=== PATIENT | female | born 1975 | race Caucasian/White ===

== ENCOUNTER → 2021-01-20 | Outpatient (CLI) | payer OTHER ==
[~2021-01-20] MED LIST: IBUPROFEN200 M1 PO; XANAX 0.25 MG0.25 MG PO
== END ==
LOC: LAB 08:51
PROVIDERS: ATTEND Student in an Organized Health Care Education/Training Program
DX: Z01.812 Encounter for preprocedural laboratory examination (principal); Z20.822 Contact with and (suspected) exposure to COVID-19

== ENCOUNTER 2021-01-22 06:05 | Day surgery (SDC) | payer OTHER ==
[~2021-01-22] VITALS: Ht 177.8 cm; Wt 120.2 kg
[2021-01-22 07:53] VITALS: BP 133/86
--- NOTE | 2021-01-22 12:23 | O ---
[address] [address] OPERATIVE REPORT Name: MARY ALMONTE Room #: 150-1 [facility]..#: [id number] Admission: 01/22/21 Attend Phys: Enio Garcia MD Discharge: Date of : 73 Report #: [id number] THIS REPORT FOR: cc: Moiz Rene MD, John M. MD McCabe,Enio Hanson MD ~ DOC #: [id number] Enio Garcia MD DATE OF SERVICE: 01/22/2021 SERVICE: Orthopedics. FACILITY: [facility]. SURGEON: Enio Garcia MD DREDGE PIPEMAN: Elsie Reynolds NP PREOPERATIVE DIAGNOSES: 1. Left shoulder pain. 2. Left shoulder adhesive capsulitis. POSTOPERATIVE DIAGNOSES: 1. Left shoulder pain. 2. Left shoulder adhesive capsulitis. PROCEDURE: Left shoulder extensive arthroscopic debridement with lysis of adhesions and manipulation under anesthesia. COMPLICATIONS: None. DRAINS: None. SPECIMENS: None. ANESTHESIA: General with regional. FINDINGS: 1. Preoperative range of motion. External rotation 30 degrees, forward flexion 80 degrees, abduction 45 degrees. 2. Postoperative range of motion is full, symmetric flexion, abduction, external and internal rotation. 3. Intact rotator cuff. HISTORY: The patient is a 45-year-old female with history of persistent progressive left shoulder pain and stiffness secondary to adhesive capsulitis. [address] [address] OPERATIVE REPORT Name: MARY ALMONTE Room #: 150-1 [facility]..#: [id number] Admission: 01/22/21 Attend Phys: Enio Garcia MD Discharge: Date of : 73 Report #: [id number] We treated this conservatively for quite some time throughout most of the past school year and she continued to have activities of daily living, affecting pain and stiffness. She elected to work with therapy, injections, oral medicines, modalities until she could get to the end of the school year and then was ready to move forward with definitive treatment. Risks, benefits, alternatives and indications for surgery discussed with her in detail. Risks include but not limited to pain, bleeding, infection, injury to nerves or blood vessels, persistent pain, recurrence of stiffness, need for further surgery including further manipulation type procedure as well as complications related to anesthesia. Despite the risks, she wished to proceed. DESCRIPTION OF PROCEDURE: After the left upper extremity was correctly identified in the preoperative holding area as the operative extremity, the patient underwent regional nerve block. She was then taken to the operating room where general anesthesia was induced without complication with LMA. A timeout procedure was performed. While she was still supine, we performed manipulation under anesthesia, beginning with forward flexion, then external rotation with her arm at her side in straight lateral abduction and then external rotation and internal rotation and adduction and full abduction. There were multiple audible and palpable releases of scar tissue that felt throughout the shoulder during the procedure and she has symmetric range of motion. The patient was then turned into the lateral decubitus position with the left side up, right side down and padded appropriately. Left arm was prepped and draped in standard sterile fashion. A second time-out procedure was performed. Standard posterior viewing portal was established followed by anterior working portal. Diagnostic arthroscopy revealed intact biceps rotator cuff, cartilage and labrum. She had thickened capsule and I used a biter and a shaver as well as a cautery to perform a rotator interval excision and capsular release all the way down to the 6 o'clock position down the front. The scope was placed in a high interval portal viewing position and then the posterior capsule release was completed down the back side of the shoulder as well. We completed the intraarticular portion of the procedure after debriding some inflamed and synovitic tissue on the inferior labrum as well as the superior labrum and over the top along the superior capsule. Scope was then placed in the subacromial space. There was healthy appearing tissue here. There was thick bursa and this was resected with a shaver and the cautery and the rotator cuff was visualized and found to be healthy and intact. At this point, the extensive debridement was completed. The instruments were removed. Portal sites were closed. Sterile dressing was applied. The patient was awakened from anesthesia and taken to recovery room in stable condition. No complications. All counts were correct. [address] [address] OPERATIVE REPORT Name: MARY ALMONTE Room #: 150-1 [facility] M.R.#: [id number] Admission: 01/22/21 Attend Phys: Enio Garcia MD Discharge: Date of : 73 Report #: [id number] Enio Garcia MD MPM/KDA <ELECTRONICALLY SIGNED> By: Enio Garcia MD 01/22/21 1223 5 Enio Garcia MD /nt
== END 2021-01-22 10:00 | disposition home or self-care (01) ==
LOC: OR → TBA 06:05 → OR 10:00 → EDSTATUS 12:40 → OR 13:07
PROVIDERS: ATTEND Orthopaedic Surgery Sports Medicine
DX: M25.512 Pain in left shoulder (principal); M75.02 Adhesive capsulitis of left shoulder; J45.990 Exercise induced bronchospasm; F41.9 Anxiety disorder, unspecified; D64.9 Anemia, unspecified; K21.9 Gastro-esophageal reflux disease without esophagitis; Z98.890 Other specified postprocedural states; Z79.899 Other long term (current) drug therapy; Z90.710 Acquired absence of both cervix and uterus; Z90.49 Acquired absence of other specified parts of digestive tract
CPT/HCPCS: 50010; 50101; 50172; 50386; 50417; 51320; 52001; 52282; 52313; 53610; 56527; 57103; 58575; 58577; 58590; 62110; 62900; 64043; 65060; 70005